=== PATIENT | male | born 1950 | race Caucasian/White ===

== ENCOUNTER → 2016-07-29 | Outpatient (CLI) | payer MEDICARE, OTHER | LOC: RAD 15:38 | PROVIDERS: ATTEND Physician Assistant | DX: S76.192A Other specified injury of left quadriceps muscle, fascia and tendon, initial encounter (principal); X58.XXXA Exposure to other specified factors, initial encounter ==

== ENCOUNTER 2019-08-30 11:09 | Emergency (ER) | payer MEDICARE, OTHER ==
[2019-08-30] MEDS ORDERED: CYCLOBENZAPRINE HCL 10 MG TABLET PO ONE (12:11)
[2019-08-30] MEDS ORDERED: KETOROLAC TROMETHAMINE 60 MG/2 ML SDV IM ONE (12:11)
--- NOTE | 2019-08-30 12:16 | ER Document Report ---
HPI - HPI Patient complains to provider of: back hip pain Time Seen by Provider: 08/30/19 12:00 Onset: Just prior to arrival Onset/Duration: Sudden Quality of pain: Achy Pain Level: 3 Context: 69-year-old male with history of diabetes presents emergency department with complaints of right-sided low back pain radiating down his buttocks and down his right leg. He reports earlier this morning he felt a shooting pain go down to his knee. While he was in the shower he was washing himself and the pain went all the way down to his foot. He reports it hurt so bad he did help getting out of the tub. Patient reports he needed help putting on shoes. He called EMS. He reports he was hurting really bad but he is feeling better now. No pain management treatment from EMS. He did not fall. Denies urinary bowel incontinence or retention. Denies numbness or tingling. Reports he has had sciatica in the past. He is also undergoing physical therapy because he has trouble with his knees and his hips. Denies fever vomiting diarrhea. Associated Symptoms: None Exacerbated by: Movement, Walking Relieved by: Denies Similar symptoms previously: Yes Recently seen / treated by doctor: No Past Medical History - General Information source: Patient - Social History Smoking Status: Unknown if Ever Smoked Cigarette use (# per day): No Frequency of alcohol use: None Drug Abuse: None Lives with: Family Family History: Reviewed & Not Pertinent Patient has suicidal ideation: No Patient has homicidal ideation: No Endocrine Medical History: Reports: Hx Diabetes Mellitus Type 2 Past Surgical History: Reports: Hx Orthopedic Surgery Vertical Provider Document - CONSTITUTIONAL Agree With Documented VS: Yes Exam Limitations: No Limitations General Appearance: WD/WN, No Apparent Distress - INFECTION CONTROL TRAVEL OUTSIDE OF THE [place] IN LAST 30 DAYS: No - HEENT HEENT: Atraumatic, Normocephalic - NECK Neck: Normal Inspection, Supple. negative: Lymphadenopathy-Left, Lymphadenopathy-Right - RESPIRATORY Respiratory: Breath Sounds Normal, No Respiratory Distress - CARDIOVASCULAR Cardiovascular: Regular Rate, Regular Rhythm - GI/ABDOMEN Gastrointestinal: Abdomen Soft, Abdomen Non-Tender - BACK Back: Normal Inspection - No obvious deformity no erythema no swelling no warmth patient complains of right lower back pain down his right buttocks right leg. - MUSCULOSKELETAL/EXTREMETIES Musculoskeletal/Extremeties: MAAURE, FROM - Patient flex and extend his foot and leg without problems while sitting in a chair - NEURO Level of Consciousness: Awake, Alert, Appropriate - DERM Integumentary: Warm, Dry Course - Re-evaluation Re-evalutation: 08/30/19 12:15 69-year-old male with history of sciatica presents to the emergency department with complaints of pain in his right lower back radiating down his right leg and buttocks. Will be treated with Toradol Flexeril reevaluate. 08/30/19 13:05 Patient reports pain is better. Reports it is 2/5. He was able to ambulate to the restroom without complaints. Instructed on Flexeril. Patient is familiar with medication. He was instructed to follow-up with his primary care provider return for concerns. He verbalized understanding to all instructions. - Vital Signs Vital signs: Temp Pulse Resp BP Pulse Ox 97.8 F 73 16 147/68 H 97 08/30/19 11:41 08/30/19 11:41 08/30/19 11:41 08/30/19 11:41 08/30/19 11:41 Discharge - Discharge Clinical Impression: Low back pain Qualifiers: Chronicity: acute Back pain laterality: right Sciatica presence: with sciatica Sciatica laterality: sciatica of right side Qualified Code(s): M54.41 - Lumbago with sciatica, right side Sciatica Qualifiers: Laterality: right Qualified Code(s): M54.31 - Sciatica, right side Condition: Stable Disposition: HOME, SELF-CARE Instructions: Low Back Pain ([facility]), Muscle Relaxers ([facility]), Sciatica ([facility]), Toradol Injection ([facility]) Additional Instructions: *You have been evaluated for back pain *Take medication as prescribed *Rest/Ice- heat as directed *Follow up with a primary care provider *Return to ED for worsening condition, changes, needs Prescriptions: Cyclobenzaprine HCl [Flexeril 10 Mg Tablet] 10 mg PO TID #15 tablet Referrals: JAMEL SILVA PA-C [Primary Care Provider] - Follow up in 3-5 days
[2019-08-30 12:40] VITALS: BP 148/77
== END 2019-08-30 13:01 | disposition home or self-care (01) ==
LOC: ER 11:09
DX: M54.41 Lumbago with sciatica, right side (principal); E11.9 Type 2 diabetes mellitus without complications
CPT/HCPCS: A9270; J1885; 96372; 99283

== ENCOUNTER 2020-05-07 19:39 | Emergency (ER) | payer MEDICARE, OTHER ==
--- NOTE | 2020-05-07 20:54 | RADIOLOGY REPORT (SQ) ---
CLINICAL INDICATION: hip injury . Pain. TECHNIQUE: Single view(s) were obtained of the left hip. AP pelvis COMPARISON: None. FINDINGS: No acute displaced fracture is identified of the hip. Alignment appears anatomic. Osteoarthritis. Surrounding soft tissues are unremarkable. IMPRESSION: No evidence of acute displaced fracture of the hip.
--- NOTE | 2020-05-07 20:57 | ER Document Report ---
ED General - General Stated Complaint: LEFT HIP PAIN Time Seen by Provider: 05/07/20 20:49 Primary Care Provider: GIOVANNI MITCHELL MD [Primary Care Provider] - Follow up as needed TRAVEL OUTSIDE OF THE [place] IN LAST 30 DAYS: No - HPI Notes: 70-year-old male presents with left hip pain. Patient states around 4 PM this afternoon he was outside in the yard, he stepped on a hickory nut, this caused h is left leg to twist inward. He states that he felt a pop sensation, did not hear any noises. He states that he had immediate pain which went down the side and front of his leg pain felt like a cherry splint sensation. He states he did not fall to the ground as he had his cane in his hand. He states he was able to ambulate back into the house with his cane, however pain was increased with ambulation. He states that he went inside and rested, elevated his legs but pain continued. He took 600 mg ibuprofen without relief. EMS administered 100 mcg of fentanyl prior to arrival. He reports a history of chronic osteoarthritis affecting multiple joints. - Related Data Allergies/Adverse Reactions: No Known Allergies Allergy (Verified 08/30/19 12:00) Home Medications: lisinopril, glipizide, tylenol Past Medical History - General Information source: Patient - Social History Smoking Status: Never Smoker Frequency of alcohol use: None Drug Abuse: None Family History: Reviewed & Not Pertinent Patient has homicidal ideation: No Endocrine Medical History: Reports: Hx Diabetes Mellitus Type 2 Past Surgical History: Reports: Hx Orthopedic Surgery Review of Systems - Review of Systems Constitutional: No symptoms reported EENT: No symptoms reported Cardiovascular: No symptoms reported Respiratory: No symptoms reported Gastrointestinal: No symptoms reported Genitourinary: No symptoms reported Male Genitourinary: No symptoms reported Musculoskeletal: See HPI Skin: No symptoms reported Hematologic/Lymphatic: No symptoms reported Neurological/Psychological: denies: Weakness Physical Exam - Vital signs Vitals: Temp 98.0 F 05/07/20 20:48 - General General appearance: Appears well, Alert In distress: None - HEENT Head: Normocephalic, Atraumatic Extraocular movements intact: Yes Pupils: PERRL - Respiratory Respiratory status: No respiratory distress - Cardiovascular Rhythm: Regular Normal capillary refill: Yes - Abdominal Inspection: Obese Tenderness: Nontender - Extremities Notes: Tenderness to the left lateral hip, no tenderness to the anatomical hip joint. Preserved range of motion at left hip. No tenderness to thigh, knee, lower leg or ankle. No obvious wounds. Leg lengths are equal. - Neurological Neuro grossly intact: Yes Cognition: Normal Orientation: AAOx4 Notes: Strength 5/5 lower extremities, sensation intact to lower extremities - Psychological Associated symptoms: Normal affect - Skin Skin Temperature: Warm Course - Re-evaluation Re-evalutation: 70-year-old male here with injury/pain to his left hip, occurred around 4 PM this afternoon, no fall. He has been ambulatory since. On exam he has intact range of motion to the left hip, no anatomical tenderness, has tenderness to the left lateral hip. No other areas of tenderness to the left leg. He had an x- ray done prior to arrival which is negative for acute fracture. I suspect he has had an injury to his IT band or possibly a labrum tear. Discussed this with patient. Will treat with ibuprofen, Flexeril and lidocaine patch. 05/07/20 22:49 Patient reports improvement in his symptoms. Will discharge with ibuprofen and Flexeril. Advised to purchase lidocaine patches [id number]. Advised him to have close well with his primary care doctor especially symptoms are still persistent in a week peer return cautions given, patient stable at time of discharge. - Vital Signs Vital signs: Temp Pulse Resp BP Pulse Ox 98.0 F 05/07/20 20:48 - Diagnostic Test Radiology reviewed: Image reviewed, Reports reviewed Discharge - Discharge Clinical Impression: Left thigh pain Disposition: HOME, SELF-CARE Additional Instructions: Use ibuprofen, Flexeril and lidocaine patches as needed. Please rest for the next couple days. If your symptoms are still persistent next week, have follow- up with your primary care doctor and potentially discuss an outpatient MRI. Return to the emergency department for any concerning worsening symptoms. Prescriptions: Cyclobenzaprine HCl [Flexeril 10 mg Tablet] 10 mg PO TIDP PRN #15 tab PRN Reason: Ibuprofen [Ibu] 600 mg PO Q6H PRN #60 tablet PRN Reason: Referrals: GIOVANNI MITCHELL MD [Primary Care Provider] - Follow up as needed
[2020-05-07] MEDS ORDERED: CYCLOBENZAPRINE HCL 10 MG TABLET PO ONE (21:13)
[2020-05-07] MEDS ORDERED: IBUPROFEN 800 MG TABLET PO ONE (21:13)
[2020-05-07] MEDS ORDERED: LIDOCAINE 5% (700 MG) TRANSDERMAL ADH..PATCH TP ONE (21:13)
[2020-05-08 02:14] VITALS: BP 134/75
== END 2020-05-08 00:01 | disposition home or self-care (01) ==
LOC: ER 19:39
DX: M79.652 Pain in left thigh (principal); S79.912A Unspecified injury of left hip, initial encounter; X50.0XXA Overexertion from strenuous movement or load, initial encounter; M19.90 Unspecified osteoarthritis, unspecified site; E11.9 Type 2 diabetes mellitus without complications; Z79.84 Long term (current) use of oral hypoglycemic drugs; Z79.899 Other long term (current) drug therapy
CPT/HCPCS: 99283; 73502; A9270 ×3